=== PATIENT | female | born 1990 | race Caucasian/White ===

== ENCOUNTER 2016-03-21 04:26 | Emergency (ER) | payer BC ==
[~2016-03-21] VITALS: Ht 167.6 cm; Wt 131.7 kg
[~2016-03-21 04:26] MED LIST: DIABETA5 MG PO; ENDOCET 5-3251 EACH PO; FERROGELS FORT1 EACH PO; IBUPROFEN800 MG PO; KENALOG,ARISTOC80 GM TP; METFORMIN HCL500 M4 PO; NIFEDIPINE ER30 MG PO; PRENATAL TABLE1 EACH PO; REGLAN10 MG PO
[2016-03-21 04:56] LABS: ADD MIUA? NO; BILIRUBIN NEGATIVE; BLOOD NEGATIVE; COLOR DK YELLOW ((YELLOW)); GLUCOSE (STRIP) NEGATIVE; KETONES NEGATIVE; LEUKOCYTES NEGATIVE; NITRITE NEGATIVE; PROTEIN (STRIP) 30; SPECIFIC GRAVITY 1.035 (1.000-1.030); UCUL ADDED? NO
[2016-03-21 05:27] LABS: CHLORIDE 105 mEq/L (99-109); POTASSIUM 4.1 mEq/L (3.7-5.4); SODIUM 140 mEq/L (136-147)
[2016-03-21 05:29] LABS: GLUCOSE 169 mg/dL (70-99)
[2016-03-21 05:30] LABS: ANION GAP 11 MEQ/L (2-14); HEMATOCRIT 30.5 % (36.0-46.0); MCHC 30.2 G/DL (30.0-36.0); MCV 76.3 FL (83-99); MEAN PLAT.VOLUME 9.8 uM^3 (9.5-12.4); PLATELET COUNT 406 K/uL (156-360); RBC DIS.WIDTH-CV 15.2 % (11.8-14.6); WHITE BLOOD COUNT 7.4 K/uL (4.1-10.2)
[2016-03-21 05:31] LABS: TOTAL BILIRUBIN 0.7 mg/dL (0.0-1.0)
[2016-03-21 05:32] LABS: ALKALINE PHOSPHATASE 143 IU/L (3-129)
[2016-03-21 05:33] LABS: GFR ESTIMATE (CALCULATED) > 59 mL/min/
[2016-03-21 05:34] LABS: UREA NITROGEN (BUN) 14 mg/dL (9-23)
[2016-03-21 05:36] LABS: LIPASE 26 U/L (1.0-51.0)
[2016-03-21 05:44] LABS: QUANTITATIVE HCG < 4.0 MIU/ML
[2016-03-21] MEDS ORDERED: BUTALB-ACETAMI1 EAC2 PO (07:36)
[2016-03-21] MEDS ORDERED: TYLENOL WITH C1 EACH PO (12:59)
[2016-03-21] MEDS ORDERED: AUGMENTIN875 MG PO (12:59)
[2016-03-21 13:08] VITALS: BP 108/56
== END 2016-03-21 13:38 | disposition home or self-care (01) ==
LOC: EME 04:26
DX: K80.20 Calculus of gallbladder without cholecystitis without obstruction (principal)
CPT/HCPCS: 74022; 74181; 76705; 80053; 81003; 83690; 84702; 85027; 99281; 99285; J2270; J2405; J7030

== ENCOUNTER 2016-04-07 20:28 | Emergency (ER) | payer BC ==
[~2016-04-07] VITALS: Ht 165.1 cm; Wt 130.9 kg
[~2016-04-07 20:28] MED LIST changes: +AUGMENTIN875 MG PO; +BUTALB-ACETAMI1 EAC2 PO; +TYLENOL WITH C1 EACH PO
[2016-04-07 21:15] LABS: CHLORIDE 108 mEq/L (99-109); POTASSIUM 3.6 mEq/L (3.7-5.4); SODIUM 141 mEq/L (136-147)
[2016-04-07 21:17] LABS: GLUCOSE 122 mg/dL (70-99)
[2016-04-07 21:19] LABS: ANION GAP 10 MEQ/L (2-14); TOTAL BILIRUBIN 0.5 mg/dL (0.0-1.0)
[2016-04-07 21:21] LABS: ALKALINE PHOSPHATASE 204 IU/L (3-129); GFR ESTIMATE (CALCULATED) > 59 mL/min/
[2016-04-07 21:22] LABS: UREA NITROGEN (BUN) 11 mg/dL (9-23)
[2016-04-07 21:23] VITALS: BP 120/62
[2016-04-07 21:25] LABS: LIPASE 99 U/L (1.0-51.0)
[2016-04-07 21:30] LABS: QUANTITATIVE HCG < 4.0 MIU/ML
[2016-04-07 21:51] LABS: HEMATOCRIT 30.2 % (36.0-46.0); MCH 22.4 PG (29.0-34.0); MCHC 30.1 G/DL (30.0-36.0); MCV 74.4 FL (83-99); MEAN PLAT.VOLUME 10.1 uM^3 (9.5-12.4); PLATELET COUNT 400 K/uL (156-360); RBC DIS.WIDTH-CV 15.9 % (11.8-14.6); RBC DIS.WIDTH-SD 41.8 % (39-53); RED BLOOD COUNT 4.06 M/uL (3.80-5.20); WHITE BLOOD COUNT 10.3 K/uL (4.1-10.2)
[2016-04-07] MEDS ORDERED: ZOFRAN ODT4 MG PO (22:11)
[2016-04-07] MEDS ORDERED: NORCO 5/3251 TABLET PO (22:11)
== END 2016-04-07 22:36 | disposition home or self-care (01) ==
LOC: EME 20:28
PROVIDERS: Physician Assistant
DX: K80.20 Calculus of gallbladder without cholecystitis without obstruction (principal); I10 Essential (primary) hypertension
CPT/HCPCS: 80053; 83690; 84702; 85027; 99281; 99284; J2405; J3010

== ENCOUNTER → 2016-04-15 | Outpatient (CLI) | payer BC ==
[~2016-04-15] MED LIST changes: +NORCO 5/3251 TABLET PO; +ZOFRAN ODT4 MG PO
== END | disposition home or self-care (01) ==
LOC: CDC 12:50
DX: R00.1 Bradycardia, unspecified (principal); K80.20 Calculus of gallbladder without cholecystitis without obstruction
CPT/HCPCS: 93000

== ENCOUNTER 2016-04-21 06:31 | Day surgery (SDC) | payer BC ==
[~2016-04-21] VITALS: Ht 167.6 cm; Wt 124.7 kg
[2016-04-21 07:28] VITALS: BP 127/74
[2016-04-21] MEDS ORDERED: COLACE100 MG PO (10:41)
[2016-04-21] MEDS ORDERED: PERCOCET 5/31 TABLET PO (10:41)
[2016-04-21 11:30] VITALS: BP 143/77
[2016-04-21 12:23] VITALS: BP 143/78
[2016-04-21 13:49] VITALS: BP 139/73
== END 2016-04-21 13:54 | disposition home or self-care (01) ==
LOC: SDC
PROC: 0FT44ZZ Resection of Gallbladder, Percutaneous Endoscopic Approach (ICD-10-PCS; principal; 2016-04-21)
DX: K81.1 Chronic cholecystitis (principal); F41.9 Anxiety disorder, unspecified; E66.1 Drug-induced obesity; Z68.42 Body mass index [BMI] 45.0-49.9, adult
CPT/HCPCS: 88304; J0330; J1100; J2250; J2405; J3010